=== PATIENT | male | born 1955 | race Caucasian/White ===

== ENCOUNTER 2017-05-16 11:23 | Observation (INO) | payer MEDICARE ==
[2017-05-16] VITALS (7 sets, daily range): BP systolic 140–172; BP diastolic 69–101; PULSE 82–90; RESP 20–40; O2SAT 97–100
[~2017-05-16] VITALS: Ht 172.7 cm; Wt 85.7 kg
[~2017-05-16 11:23] MED LIST: ASPI-973 PO; CALC0.257 PO; CALC500T53 PO; CLOP75TA28 PO; DOXE2.5C PO; GABA-504 PO; HYDR-4003 PO; LIP40 PO; LISI2.5T PO; METO-386 PO; MTC5T PO; OMEP40CA36 PO; TRAZ-118 PO
--- NOTE | 2017-05-16 11:31 | ED.REPORT ---
HPI-Dyspnea / Wheezing Date of Service May 16, 2017 ED Provider: Cosmo Hernandez MD A 58 year old male with a history of NSTEMI, stent, ESRD on peritoneal dialysis , GERD, secondary hyperparathyroidism and hypertension presents to the ED complaining of shortness of breath. This began suddenly 3.5 days ago when he was walking in the rain. He initially had a cough, but this has since resolved. He is now experiencing chest tightness, fever, nausea and vomiting. His chest tightness and shortness of breath are exacerbated by exertion but not by laying flat. He denies diaphoresis, chills, chest pain or lower extremity edema. The pt experienced similar symptoms in 07/2016 and required stent placement. He was taken off of Plavix in 01/2017. Nursing Notes Stated Complaint: SHORTNESS OF BREATH Chief Complaint: Respiratory Complaints Nursing Notes Reviewed: Yes (Updater not reconciled) Allergies: Coded Allergies: codeine (Verified Allergy, Severe, NAUSEA/VOMITING HIVES, 12/06/14) Scheduled Aspirin (Aspirin) 81 Mg Tablet 81 MG PO DAILY Atorvastatin (Lipitor) 40 Mg Tablet 40 MG PO DAILY Calcitriol (Rocaltrol) 0.25 Mcg Capsule 1 MCG PO DAILY Calcium Carbonate (Calcium Carbonate) 200 Mg Tab.chew 4,000 MG PO [facility] Clopidogrel (Clopidogrel) 75 Mg Tablet 75 MG PO DAILY Doxercalciferol (Hectorol) 2.5 Mcg Capsule 2.5 MCG PO DAILY Gabapentin (Gabapentin) 400 Mg Capsule 400 MG PO TID Lisinopril (Lisinopril) 2.5 Mg Tablet 2.5 MG PO DAILY Metoclopramide (Metoclopramide) 5 Mg Tablet 5 MG PO BID Metoprolol Succinate ER (Metoprolol Succinate ER) 25 Mg Tab.er.24h 25 MG PO BID Omeprazole (Omeprazole) 40 Mg Capsule.dr 40 MG PO BID Trazodone (Trazodone) 100 Mg Tablet 100 MG PO HS Scheduled PRN Hydrocodone-Acetaminophen 5-325 mg (Hydrocodone-Acetaminophen 5-325 mg) 1 Each Tablet 2 TABLET PO Q4 PRN PRN For Moderate Pain General Time Seen by MD: 11:30 Chief Complaint Shortness of breath Hx Obtained From: Patient Arrived By: Walk-in Sudden in Onset?: Yes Onset Occurred: 3 days ago Symptom Duration: Since onset Recent Healthcare: No recent hospitalization Similar Sx Previous: Yes Past Medical History Past Medical History Notes: Hygiene Coordinator: Dr. Torres Past Medical History NSTEMI s/p JOE in ostial LAD lesion chronic end-stage renal disease on peritoneal dialysis GERD Secondary hyperparathyroidism Hypertension #restless leg syndrome Past Surgical History Stent placement Smoking History Never Smoker Social History Other Social History: Good social support Ambulatory Status Independent Review of Systems Review of Systems Note: chest tightness denies lower extremity edema Constitutional: Reports: Fever, Denies: Chills Respiratory: Reports: Non-productive cough (resolved), Shortness of breath Cardiovascular: Denies: Chest pain Musculoskeletal: Denies: Back pain, Neck pain Skin: Denies Diaphoresis, Denies Rash Complete sys rev & neg: except as marked. GI: Reports: Nausea, Vomiting Physical Exam Initial Vital Signs Vital Signs (First) Date Time Temp Pulse Resp B/P Pulse Ox O2 Delivery O2 Flow Rate FiO2 05/16/17 11:27 37.3 89 40 170/101 100 Room Air 05/16/17 12:53 1 Initial VS: Reviewed, Vital signs abnormal General/Constitutional: Awake, Alert no edema or signs fluid overload peritoneal dialysis catheter in place Neck: Atraumatic, Supple, Full range of motion Respiratory / Chest: Atraumatic, No respiratory distress slightly tachypneic not visible dyspneic questionable diminished breath sounds on the right Cardiovascular: Heart rate NL, Regular rhythm, Heart sounds NL ENT: Atraumatic, Airway patent, Mucous membranes moist Abdomen: Atraumatic, Soft, Non-tender Back: Atraumatic, Full range of motion Lower Extremity / Pelvis / MS: Atraumatic, Full range of motion Skin: Color NL, No rash, Warm, Dry Neurologic: Oriented X3, Speech NL, No motor deficits, No sensory deficits Head / Eyes: Atraumatic, Normocephalic, PERRL, EOMI Upper Extremity / MS: Atraumatic, Full range of motion Psychiatric: Affect NL, Mood NL Interpretation & Diagnostics Lab Results Interpretation Result Diagram: 05/16/17 1213 05/16/17 1213 Test 05/16/17 12:13 05/16/17 12:14 White Blood Count 6.4th/mm3 (3.8-10.1) Red Blood Count 3.75mil/mm3 (4.40-5.80) Hemoglobin 11.3g/dL (13.8-17.2) Hematocrit 35.3% (41.0-50.0) Mean Corpuscular Volume 94.1fL (81-100) Mean Corpuscular Hemoglobin 30.1pg (27.0-35.0) Mean Corpuscular Hemoglobin Concent 32.0% (32.0-37.0) Red Cell Distribution Width 15.9% (12.3-15.4) Platelet Count 325bil/L (150-400) Neutrophils (%) (Auto) 62.9% (40-74) Lymphocytes (%) (Auto) 19.2% (14-46) Monocytes (%) (Auto) 15.2% (4-12) Eosinophils (%) (Auto) 1.9% (0-5) Basophils (%) (Auto) 0.2% (0-3) Sodium Level 137mEq/L (134-144) Potassium Level 4.7mEq/L (3.5-5.2) Chloride Level 97mEq/L (97-108) Carbon Dioxide Level 21mmol/L (18-29) Blood Urea Nitrogen 47mg/dL (8-27) Creatinine 12.34mg/dL (0.76-1.27) Estimat Glomerular Filtration Rate 4mL/min (>59) Glucose Level 107mg/dL (60-99) Lactic Acid Level 1.4mmol/L (0.4-2.0) Calcium Level 9.1mg/dL (8.5-10.1) Phosphorus Level 2.3mg/dL (2.5-4.9) Magnesium Level 1.7mg/dL (1.6-2.6) Total Bilirubin 0.3mg/dL (0.0-1.2) Aspartate Amino Transf (AST/SGOT) 22U/L (0-50) Alanine Aminotransferase (ALT/SGPT) 15U/L (0-44) Alkaline Phosphatase 78U/L (25-160) Troponin T 0.133ug/L (0.0-0.011) Total Protein 6.9g/dL (6.4-8.4) Albumin 3.4g/dL (3.4-5.0) Prothrombin Time 10.6sec (8.1-12.5) Prothromb Time International Ratio 0.99ratio Activated Partial Thromboplast Time 26.4sec (22.8-33.0) Lab Results Interpretation: CBC normal CMP chronic renal failure Troponin elevated, likely secondary chronic renal failure-patient's previous troponin during an Acute Syndrome were in order of magnitude grade ECG Interpretation ECG Interpretation: normal sinus rhythm with a rate of 83 right ventricular hypertrophy RBBB nonspecific T abnormalities seen on previous dated 08/22/2017 have resolved Time: 12:22 Interpreted by: ED physician X-Ray Chest Interpretation Chest Xray Interpretation: IMPRESSION: Development of a small to moderate right-sided pleural effusion, with presumed overlying atelectasis. Trace left-sided pleural effusion. Dictated by: Hector Alexander M.D. on 05/16/2017 at 12:12 Approved by: Hector Alexander M.D. on 05/16/2017 at 12:14 Interpretation / Wet Read by: Interpret - Radiologist Re-Eval/Medical Decision Med Decision/Clinical Course This is a 62-year-old male with a history of coronary disease and chronic renal failure on peritoneal dialysis presents with several days of increasing shortness of breath. Denies chest pain, he thinks maybe had a fever several days ago but none since and has no cough. There is no increasing dyspnea that is brought into the emergency department. He reports no weight change, no change in dialysis, no new medications. He has no additional complaints. He reports that when he last identified as having an acute cord syndrome and symptoms were shortness breath, but states this is different. Arrival he has a dyspnea and tachypnea at the restaurant rate in the 40s, but arrest settles down-but is not hypoxic or febrile. He is normotensive. He does not have a tachycardia. Slightly diminished lung sounds on the right, but no cough. He has no edema or JVD to indicate marked findings of heart failure, and no clinical findings of a DVT or evident on exam. Chest x-ray reveals a new, complex right pleural effusion slightly caused the patient's dyspnea. EKG is actually improved with resolution of abnormal T-wave seen previously, blood work is nondiagnostic he does not have a leukocytosis. His troponin elevation, but it fits with his chronic renal function. With his cardiac history on review of records she did have a left pleural effusion when he first was identified, and CHF is a likely possibility. However he had a full fairly recent echocardiogram without overt signs of worsening CHF, so limited echo is being planned for reevaluation. Additionally diagnostic thoracentesis is being attempted. The radiologist performing a thoracentesis is worried about this being potentially infectious given that slightly loculated appearance-however the patient does not clinically appear like someone as 1 would be expected with an empyema. He does not have a fever here, this borderline fever several days ago history is extremely vague, he does not have a white count. I doubt an empyema clinically. The patient's been consulted by the nephrologists, stating admitted for continued management given the multiple comorbidities. Source of Hx: Old records Re-Evaluation/Progress #1: Time of Eval: 13:04 Patient Status: Condition improved Re-Evaluation/Progress Note: Pt rechecked, who is resting comfortably. Updated the pt on radiology and lab results. Re-Evaluation/Progress #2: Time of Eval: 14:08 Patient Status: Condition improved Re-Evaluation/Progress Note: Pt rechecked, who is comfortable. The diagnosis and plan for admission are discussed. The pt understands and agrees with the plan. All questions are addressed at this time. Consultation #1: Referral / Consult Name: Nishant Abel DO Consulted With: Nephrology Call Returned at: 14:20 Organizational Development Specialist: Will see patient, Agrees with eval Note: Spoke with Dr. Abel, it corporate recruiter, regarding pt's case. Dr. Abel will see the pt in the ED. Consultation #2: Referral / Consult Name: Saritha Walters DO Consulted With: Hospitalist Call Returned at: 14:43 Organizational Development Specialist: Agrees with eval, Agrees with plan, Accepts admit Note: Spoke with Dr. Walters, hospitalist, regarding pt's case. Dr. Walters agrees with the evaluation and agrees to admit the pt. Consultation #3: Referral / Consult Name: Nishant Abel DO Consulted With: Nephrology Call Returned at: 14:56 Organizational Development Specialist: Agrees with eval, Agrees with plan Note: Spoke with Dr. Abel, who has evaluated the pt. He agrees with the plan for admission and agrees to consult. Counseled Regarding: Diagnosis, Lab results, Need for admission Discharge & Departure Impression: Primary Impression: Pleural effusion Additional Impressions: Chronic renal failure Chronic kidney disease stage: unspecified stage Qualified Code: N18.9 - Chronic kidney disease, unspecified Dyspnea Disposition: ADMITTED TO HOSPITAL Discharge Condition All VS Reviewed: Yes Condition: Stable Referrals: Yamilex Ferrara MD (PCP) Scribe Attestation Portions of this note were transcribed by Adilson Baltazar. I, Dr. Hernandez personally performed the history, physical exam and medical decision-making; I reviewed and confirmed the accuracy of the information in the transcribed note. copies to: Yamilex Ferrara MD, Matthew F MD May 16, 2017 11:31 ADILSON BALTAZAR May 16, 2017 11:39
--- NOTE | 2017-05-16 12:15 | DRSVH ---
PROCEDURE: X-RAY CHEST ONE VIEW, PORTABLE ([id number]) INDICATIONS: SHORTNESS OF BREATH TECHNIQUE: One view of the chest was acquired. COMPARISON: [facility], CR, XR CHEST 2VW, 07/07/2016, 10:46. [facility], CR, XR CHEST 2VW, 07/23/2016, 16:06. [facility], CR, XR CHEST 2VW, 08/20/2016, 12:16. FINDINGS: Surgical changes and devices: Postoperative clips are seen involving the central lower neck. Lungs and pleura: There is a small moderately sized right-sided pleural effusion seen, which has incr eased in size compared to the prior. Likely overlying atelectasis can be seen at the right lung base . A trace left-sided pleural effusion is seen, which is decreased in size compared to the prior. No pneumothorax is seen. Mediastinum: Mediastinal contours appear normal. Heart size is normal. Bones and chest wall: Age-appropriate bony degenerative changes are seen. Mild dextroconvex scoliot ic curvature is seen. No suspicious bony lesions. Overlying soft tissues appear unremarkable. IMPRESSION: Development of a small to moderate right-sided pleural effusion, with presumed overlying atelectasis. Trace left-sided pleural effusion. Dictated by: Hector Alexander M.D. on 05/16/2017 at 12:12 Approved by: Hector Alexander M.D. on 05/16/2017 at 12:14
[2017-05-16 12:29] LABS: BASOPHILS % (AUTO) 0.2 % (0-3); EOSINOPHILS % (AUTO) 1.9 % (0-5); MONOCYTES % (AUTO) 15.2 % (4-12); Mean Corpuscular Hemoglobin 30.1 pg (27.0-35.0); Mean Corpuscular Volume 94.1 fL (81-100); NEUTROPHILS % (AUTO) 62.9 % (40-74); Platelet Count 325 bil/L (150-400)
[2017-05-16 12:31] LABS: INR 0.99 ratio
[2017-05-16 12:50] LABS: Magnesium 1.7 mg/dL (1.6-2.6); Phosphorus 2.3 mg/dL (2.5-4.9)
[2017-05-16 13:07] LABS: TROPONIN T 0.133 ug/L (0.0-0.011)
[2017-05-16] MEDS ORDERED: Sodium-Potassium Phosphorus Packet PO ONE (15:30)
--- NOTE | 2017-05-16 15:30 | ABG ---
DateTimeAnalyzed 15:23:00 -_ pH ____7.273 - Drawn By as - Date/Time Notified____ 15:30:00 -_ Notified Whom dr nilo\\ - Aba test N/A -
[2017-05-16] MEDS ORDERED: LISI-571 PO (15:54)
[2017-05-16] MEDS ORDERED: METO-394 PO (15:55)
[2017-05-16] MEDS ORDERED: TRAZ-118 PO (15:55)
[2017-05-16] MEDS ORDERED: GABA-502 PO (15:57)
[2017-05-16] MEDS ORDERED: NITR0.4T38 SL (15:57)
[2017-05-16] MEDS ORDERED: CHOL200047 PO (15:58)
--- NOTE | 2017-05-16 16:03 | DRSVH ---
PROCEDURE: US GUIDED THORACENTESIS BY REFERRING PHYSICIAN ([id number]) INDICATIONS: SOB, R effusion TECHNIQUE: The indications, alternatives, benefits, risks, and complications of the procedure were explained to the patient. Written informed consent was obtained and placed in the chart. The chest was examined sonographically, and an appropriate site was chosen for thoracentesis. The skin was prepared and tania ped in the usual sterile fashion, and 1% lidocaine was infiltrated from the skin down through the ple ural surface. A 19-gauge catheter-covered needle was then introduced into the pleural space, the cat heter was advanced and the needle was withdrawn, and thereafter pleural fluid was aspirated. The cat heter was then removed and a dressing was applied. The attending physician was present, and personal ly performed the procedure. COMPARISON: [facility], CR, XR CHEST 1VW, 05/16/2017, 15:27. FINDINGS: Access site: Right hemithorax. Needle: One-Step centesis catheter with introducer needle. Fluid volume and description: 120 cc of slightly bloody tinged pleural fluid. Fluid sent for diagnostic testing: Fluid sent for cytology, multiple chemistry panels and therapeutic drainage. Medications: 1% lidocaine for local anaesthesia. Complications: None; post-procedural chest radiograph is pending to assess for pneumothorax. IMPRESSION: Successful ultrasound-guided thoracentesis. Dictated by: Austin RENTERIA Interpreted: Ida Ventura MD on 05/16/2017 at 16:02 Transcribed by: ITALO on 05/16/2017 at 16:03 Approved by: Ida Ventura M.D. on 05/16/2017 at 17:12
--- NOTE | 2017-05-16 16:06 | CONS ---
[address] [address] CONSULTATION REPORT PATIENT: YUE RAMIRES : 1955 MR#: [id number] ADMIT: 05/16/2017 JOB ID: [id number] RENAL CONSULTATION: DATE OF SERVICE: 05/16/2017 HISTORY: This patient is a 62-year-old white male who was admitted through [facility] for shortness of breath. He has a history of end-stage renal disease and is currently on continuous nighttime peritoneal dialysis. Renal consultation is being sought for further evaluation and management of his chronic kidney disease and peritoneal dialysis. The patient states that he has had progressive shortness of breath for about the last 5-7 days. He has had progressive dyspnea with minimal exertion and some slight resting dyspnea in the last 1-2 days. He denies any orthopnea, paroxysmal nocturnal dyspnea, lower extremity edema, or chest pain. He has been doing his nighttime peritoneal dialysis treatments without variation. In the emergency room, a chest x-ray revealed a semi-loculated pleural effusion of the left lower lobe of his lung. He is currently being seen by Interventional Radiology and a thoracentesis is planned. He denies any history of any recent abdominal pain, fever, chills, problems with draining from his peritoneal dialysis fluid, blood in the fluid or cloudy fluid, or diminished return. He states that he is sleeping okay. He denies any headache, visual changes, cough, wheezing, nausea, vomiting, anorexia, constipation, diarrhea, change in weight, or skin rashes. The etiology of his end-stage renal disease is secondary to longstanding hypertension. He has been on peritoneal dialysis since 2014 and has had two different peritoneal dialysis catheters placed. He states that he has had two episodes of peritonitis a number of years ago; however has had no problems with this since that time. PAST MEDICAL HISTORY: Significant for hypertension with hypertensive heart disease and hypertensive nephrosclerosis, end-stage renal disease as detailed above, coronary artery disease with an acute myocardial infarction. He underwent a stent placement in July 2016. He also has a history of hyperlipidemia and a parathyroidectomy. Otherwise he denies a history of any prior stroke, seizure, asthma, emphysema, tuberculosis, congestive heart failure, thyroid illness, or malignancy. PAST SURGICAL HISTORY: Significant for a partial parathyroidectomy, coronary stent placement, and two dialysis catheter placements as detailed above. ALLERGIES: To CODEINE and states he gets a rash with this. SOCIAL HISTORY: He denies the history of alcohol, tobacco or illicit drug use. He does states that he consumes marijuana occasionally. FAMILY HISTORY: Remarkable for some type of renal problem in his father; however his father was not on dialysis. He also states that his sister was born with one kidney. There is also family history of diabetes and hypertension. REVIEW OF SYSTEMS: Is detailed above. MEDICATIONS: At time of admission include aspirin, atorvastatin, calcitriol, calcium carbonate, clopidogrel, Hectorol, gabapentin, lisinopril, metoclopramide, metoprolol, omeprazole, and trazodone. PHYSICAL EXAMINATION: Revealed a well-developed, somewhat sallow complected, 62-year-old white male who was alert and oriented x3, in no distress at time of my evaluation. His blood pressure is 140/70 with a pulse rate of 82. HEENT examination is remarkable for mildly pale sclerae and slight scleral icterus. Cornea, conjunctivae, pupils, and extraocular muscles were all within normal limits. Otherwise his HEENT exam was remarkable for rhinophyma and moist mucous membranes. Neck is supple without adenopathy, thyromegaly or jugular venous distention. Lungs were clear on the left side without any abnormal breath sounds. On the right half of the chest, his breath sounds were diminished about half way down. There were no rales or rhonchi noted. Heart is regular and rhythmical with a soft systolic murmur. Abdomen is soft, without any tenderness, rebound, guarding, masses or hepatosplenomegaly. The area over his tunnel peritoneal dialysis catheter was not tender to palpation. Extremities do not show any evidence of any clubbing, cyanosis, or edema. Skin turgor was good and there was no evidence of any rashes. LABORATORY EXAMINATION: His white count is 6.4, hemoglobin 11.3, hematocrit 35.3, red cell indices, platelet count and differential were normal. Sodium is 137, potassium 4.7, chloride 97, bicarbonate 21, BUN and creatinine were 47 and 12.34. His glucose is 107. His phosphorus was 2.3. Liver function studies were normal. PT and PTT were within normal limits. IMAGING: His chest x-ray revealed a loculated effusion in the right lower lung field. IMPRESSION: 1. End-stage renal disease, dialysis dependent. 2. Hypertension with hypertensive heart disease and hypertensive nephrosclerosis. 3. Hypophosphatemia. RECOMMENDATION: 1. I will go ahead and write for his nighttime cycler orders to run four cycles for 10-1/2 hours of 1.5% Dianeal. 2. I agree with the plans for thoracentesis and send the fluid for analysis. 3. I would hold his phosphate binders for now as his phosphorus level is low and I will go ahead and order a dose of Neutra-Phos for him. Once again, I would like to thank you for allowing me to participate in the care of this most pleasant and interesting patient. I will be following him closely with you.
[2017-05-16] MEDS ORDERED: Ondansetron 2 mg/mL 2 mL Inj IVPUSH PRN (16:10)
--- NOTE | 2017-05-16 16:14 | NUR ---
Admit nurse note Admission assessment completed in the ER, Echocardiogram in progress. Pt. denies complaints. He states he came in for sob and feels much better since "they took that fluid off of me." No sob noted while lying flat for echo. Pt. states he has no hx sob or lung troubles until recently. He has been on peritoneal dialysis since 2004 and last did at home dialysis last night. He has neuropathy and is due for his gabapentin but states he is not uncomfortable yet. Allergies verified and allergy sticker placed on nameband. Pt. declines advance directives information. Report given to Radha Leone.
--- NOTE | 2017-05-16 16:28 | DRSVH ---
PROCEDURE: X-RAY CHEST ONE VIEW ([id number]) INDICATIONS: post thoracentesis (wait until procdure complete) TECHNIQUE: One view of the chest was acquired. COMPARISON: [facility], CR, CHEST 1VW, 05/06/2008, 9:07. [facility], CR, XR CHEST 2VW, 07/07/2016, 10:46. [facility], CR, XR CHEST 2VW, 08/20/2016, 12:16. [facility], CR, XR CHEST 1VW (PORTABLE), 05/16/2017, 11:59. FINDINGS: Surgical changes and devices: Surgical clips right lower neck region.. Lungs and pleura: There is an appreciable improvement in the subpulmonic and lateral right pleural ef fusion, with no pneumothorax after thoracentesis on the right. A small 1.2 cm masslike structure abu ts the diaphragm of the left hemithorax, exactly at the middle third, and on the right there is pleur al thickening and lung parenchymal consolidation 2 the degree of back recess than for presence of mas s would be very limited. Mediastinum: Mediastinal contours appear normal. Heart size is normal. Bones and chest wall: No suspicious bony lesions. Overlying soft tissues appear unremarkable. IMPRESSION: No pneumothorax after right-sided thoracentesis, significant residual pleural thickening and lung base alveolar opacification is present on the right potentially obscuring mass lesion in fabienne t area. Note is made of a left lung base masslike structure abutting the middle third of the left hemidiaphra gm, and followup CT scanning is obtained contrast enhanced technique is recommended and focused atten tion to these lower lung is recommended. Dictated by: Jose Luis Bates M.D. on 05/16/2017 at 16:24 Approved by: Jose Luis Bates M.D. on 05/16/2017 at 16:26
[2017-05-16 16:42] LABS: TOTAL PROTEIN,PLEURAL FLUID 3.1 g/dL
--- NOTE | 2017-05-16 17:06 | NUR ---
Admit: Patient arrived to [facility] via stretcher @ approx 1645. Ambulated to stand up scale then to bed. Steady gait. Alert & oriented x 3. Telemetry box #42 placed, SR 89 per cafeteria monitor. Bed rails up x 2, bed in low and locked position, call light within reach. Denies hx of falls. Denies pain, nausea, states shortness of breath "much better" compared to when he first presented to ED. Room air O2 saturation 97%. Oriented to room and call light system. Band-aid on right upper back from thoracentesis C/D/I. Notified by wafer slicer that she will place on PD tonight. Addendum: 05/16/17 at 1816 by BLANE OQUENDO RN Temp 37.6, BP 172/99. aware.
[2017-05-16 17:09] LABS: BFWBC 475 /mm3; MONOCYTES,BODY FLUID 4 %; OTHER CELLS,BODY FLUID 0
[2017-05-16] MEDS ORDERED: Alum-Mag Hydrox-Simeth 30 mL Suspension PO PRN (17:15)
[2017-05-16] MEDS ORDERED: Polyethylene Glycol (PEG) 17 Gm Powder PO PRN (17:15)
--- NOTE | 2017-05-16 17:42 | DRSVH ---
[facility] [address] [place] [address] Echocardiogram Report Name: YUE RAMIRES DStudy Date: 05/16/2017 Height: 68 in Hospital Exam Location: [facility] Weight: 196 lb Gender: Male BSA: 2.0 m2 : 1955 Age: 62 yrs BP: 140/69 mmHg Reason For Study: Shortness of breath Ordering Physician: LORETO [facility] Performed By: Mayra Pizarro Referring Physician: Baldemar Mcclelland Interpretation Summary 1) Normal left ventricular thickness, size, wall motion, and systolic function (EF 55-60%). 2) Normal right ventricular size and function. 3) No significant valvular abnormalities. 4) Compared to the Echo done 08/21/2016, LVEF has improved from 45-50% to 55- 60% on today's study. Procedure: Focused echocardiogram to assess regional wall motion, ejection fraction, and pleural effusion. Comparison is made with the echocardiogram of 08/21/2016. The patient was in normal sinus rhythm during the exam. Left Ventricle: The left ventricle is normal in size. There is normal left ventricular wall thickness. The ejection fraction is estimated to be 55-60%. Left ventricular systolic function is normal without focal wall motion abnormalities. Right Ventricle: The right ventricle is normal in size and function. Mitral Valve: The mitral valve is normal in structure and function. There is trace mitral regurgitation. Aortic Valve: The aortic valve is trileaflet. The aortic valve opens well. No aortic regurgitation is present. Tricuspid Valve: The tricuspid valve is normal in structure and function. There is a trace or physiologic amount of tricuspid regurgitation. Pulmonary artery pressures cannot be estimated because of the lack of a measurable TR jet velocity. Pulmonic Valve: The pulmonic valve is normal in structure and function. There is a trace or physiologic amount of pulmonic regurgitation. Great Vessels: The IVC is of normal diameter and collapses greater than 50% with a sniff. This suggests a low right atrial pressure of 3 mm Hg. Pericardium/ Pleura There is an anterior echo-free space consistent with a fat pad. There is no pericardial effusion. There is no pleural effusion. MMode/2D Measurements & Calculations LVIDd: 4.9 cm LVIDs: 3.2 cm LVAd ap4: 32.7 cm FS: 34.5 % LVAs ap4: 21.2 cm IVSd: 1.0 cm LVLs ap4: 8.3 cm LVPWd: 0.90 cm LVAd ap2: 20.8 cm EF(MOD-bp): 54.9 % LVLd ap2: 7.4 cm EDV(MOD-sp2): 46.5 ml EDV(sp2-el): 49.4 ml LVAs ap2: 12.1 cm LVLs ap2: 6.6 cm ESV(MOD-sp2): 19.3 ml ESV(sp2-el): 19.0 ml EF(MOD-sp2): 58.5 % LV lopez. diameter/BSA (cm/m^2): 2.4 LV sys. diameter/BSA (cm/m^2): 1.6 Reading Physician:05:42 PM
[2017-05-16] MEDS: Pantoprazole 40 mg ER24 Tablet PO SCH (18:03)
[2017-05-16] MEDS: Heparin 5,000 Unit/mL Inj SUBQ SCH (18:05)
--- NOTE | 2017-05-16 18:14 | NUR ---
Off Unit: Patient transported to CT via wheelchair accompanied by transporter @ approx 1810. technical support consultant notified. No apparent distress noted at time of transport.
--- NOTE | 2017-05-16 18:23 | PCM.HPMED ---
Subjective Date of Service May 16, 2017 Primary Provider: Admitting Physician: Saritha Walters DO Primary Care Physician: Fortino Torres MD Attending Physician: Saritha Walters DO Admit Status: From the Emergency Department Chief Complaint: Dyspnea History of Present Illness: This is a 62-year-old male with past medical history of CAD status post stent last Carlos time, known left left pleural effusion of unknown etiology, and NSTEMI last , secondary hyperparathyroidism, ESRD secondary to hypertension currently on peroneal dialysis is presenting to the ER due to dyspnea that has been ongoing for 3-5 days and has been getting worse. At baseline patient can walk a quarter mile but now he is short of breath even walking down the chan. He thought that he had similar symptoms last July prior to his NStemi. When he came to the hospital in the ER RR 40s, his EKG showed right bundle branch block and right ventricular hypertrophy, X chest x- rays showed a trace left-sided effusion and atelectasis and but also small moderate sized right-sided effusions. blood cultures were ordered. patient underwent thoracentesis by interventional radiology which provided him in a lot of relief. ABG showed concern for acidosis at 7.27. Patient states that he is not a smoker and has never been, though he does consume marijuana daily in the evenings. His helps him at the [employer]. He does not have any other complaints that other than dry mouth, he has numbness and tingling in the peripherals, a carpal tunnel in the right hand increased generalized weakness in the recent past and he is hard of hearing (not new ). States that he has been coughing prior to coming to ER but it has resolved. He denies wheezing, his chest tightness that was reported in the ER is has also resolved. He was noted to be afebrile in the ER. He took his morning medications this morning and he was able to verify his medications upon arrival to floor. In his room, His vitals were blood pressure 172/99 temperature 99.6 pulse is 89 and he is saturating on room air fully. He states that his blood pressure is usually well under control at home with systolic 120s , diastolic 60s. An echo performed in 2015 shows 45-50% EF distal anterior hypokinesis Repeat echo was performed in the ER and showed improved left ventricular function ("Compared to the Echo done 08/21/2016, LVEF has improved from 45-50% to 55-60% on today's study.") Troponin was elevated upon admission at 0.135. Her BNP was added on today had labs showed 2043 Review of Systems: Complete review of systems performed, pertinent positives and negatives per history of present illness, all other systems reviewed and are negative. Allergies Coded Allergies: codeine (Verified Allergy, Severe, Rash,Itching,, 05/16/17) Home Medications Patient's medications include aspirin, Plavix, atorvastatin, gabapentin, lisinopril, metoprolol, omeprazole, trazodone and Tums PMH End-stage renal disease secondary to hypertension, on peritoneal dialysis, CAD status post stent last July, left pleural effusion, and Stamey last July , GERD, secondary hyperparathyroidism, insomnia, peripheral neuropathy Surgical History Stent placement last July, parathyroidectomy Family History Mother had dementia, dad had hypertension and estimated from aneurysm Social History Occupation: retired [employer] truck driver Hx Alcohol Use: Yes ("years ago") Hx Substance Use: Yes (marijuana daily ) Smoking Status: Never Smoker Living Arrangement: with Family Exam Vital Signs Vital Sign - Last Date Time Temp Pulse Resp B/P Pulse Ox O2 Delivery O2 Flow Rate FiO2 05/16/17 17:10 86 05/16/17 16:54 37.6 20 172/99 97 Room Air 05/16/17 16:39 1 Exam General: No acute distress, , appropriately interactive HEENT: Normocephalic, atraumatic. External ears without defect. Pupils equal, round, and reactive to light and accommodation. Anicteric sclerae, moist conjunctivae, and no lid lag. Oropharynx free of erythema and cobble stoning with moist mucosa.Appears to have a nose tip that is cyanotic but he states that that is not new. Neck: Supple with full range of motion. No jugular venous distension. No bruits. No lymphadenopathy or thyromegaly. Cardiovascular: Regular rate and rhythm with no murmurs, rubs, or gallops appreciated Pulmonary: No, wheezes, or rhonchi. Normal respiratory effort with no use of accessory muscles. Fine Crackles in the lower lobes Abdomen: Bowel tones present. Soft, mildly tender diffusely, nondistended. No hepatosplenomegaly or masses appreciated. Extremities: No clubbing, cyanosis, edema, or lymphadenopathy appreciated. Skin: Normal temperature, turgor, and texture; no rash, ulcers, or subcutaneous nodules appreciated. Neurological: Cranial nerves grossly intact. Normal muscle strength, tone, and bulk. Reflexes, coordination, and sensory function within normal limits. No known gait impairment. Psychiatric: Normal mood and affect. Alert and oriented to person, place, and time. Lab and Diagnostics Result Diagram: 05/16/17 1213 05/16/17 1213 X-Rays, CTs and MRIs PROCEDURE: X-RAY CHEST ONE VIEW, PORTABLE ([id number]) INDICATIONS: SHORTNESS OF BREATH TECHNIQUE: One view of the chest was acquired. COMPARISON: [facility], CR, XR CHEST 2VW, 07/07/2016, 10:46. [facility], CR, XR CHEST 2VW, 07/23/2016, 16:06. [facility], CR, XR CHEST 2VW, 08/20/2016, 12:16. FINDINGS: Surgical changes and devices: Postoperative clips are seen involving the central lower neck. Lungs and pleura: There is a small moderately sized right-sided pleural effusion seen, which has increased in size compared to the prior. Likely overlying atelectasis can be seen at the right lung base. A trace left-sided pleural effusion is seen, which is decreased in size compared to the prior. No pneumothorax is seen. Mediastinum: Mediastinal contours appear normal. Heart size is normal. Bones and chest wall: Age-appropriate bony degenerative changes are seen. Mild dextroconvex scoliotic curvature is seen. No suspicious bony lesions. Overlying soft tissues appear unremarkable. IMPRESSION: Development of a small to moderate right-sided pleural effusion, with presumed overlying atelectasis. Trace left-sided pleural effusion. Dictated by: Hector Alexander M.D. on 05/16/2017 at 12:12 Approved by: Hector Alexander M.D. on 05/16/2017 at 12:14 Assessment & Plan Assessment #1 acute congestive heart failure due to volume overload HFPEF, present on admission acute dyspnea secondary to increased pleural effusions Patient was already tapped in the ER, follow the cultures from pleural fluid We will rule out other cardiac etiologies with troponins Echocardiogram already performed in the ER showed improved left ventricular function, discussed case with Dr. Mota, recommends adding CK and CK-MB to troponins. No need for stress test in the a.m. based on current reedings and presentation (especially after the fact that he is asymptomatic following the thoracentesis). The patient in his time and recommendations Morphine 1 mg every 4 hours when necessary for dyspnea Chest CT is ordered with contrast after informing nephrology to look for malignancy, rule out exudative effusions. Assessment #2 end-stage renal dialysis center toenail dialysis chronic -- Dr. Abel is contacted from the ER he plans to do a dialysis tonight -- Ultimately interesting the fluids, shift . His symptoms of volume overload and congestive heart failure Assessment #3 CAD status post stents chronic presumed stable Continue home medications atorvastatin, is aspirin, Plavix, lisinopril, metoprolol Assessment #4 hypertension chronic stable Continue home medications Assessment #5 GERD chronic stable Continue medications Assessment #6 insomnia chronic presumed stable Continue medications Assessment #7 secondary hyperparathyroidism, chronic presumed stable -- Continue vitamin supplementation CODE STATUS: Full code ADM: PCP: No PCP DVT prophylaxis with heparin subcutaneous High risk medication: Morphine IV Patient is admitted under observation status with expected length of stay less than 2 midnights due to severity of presenting symptoms, risk of adverse event, and complexity of treatment plan. Time spent 45 minutes Saritha Walters DO May 16, 2017 18:23
[2017-05-16 18:50] LABS: Magnesium 1.7 mg/dL (1.6-2.6)
[2017-05-16 18:51] LABS: TROPONIN T 0.135 ug/L (0.0-0.011)
--- NOTE | 2017-05-16 19:01 | DRSVH ---
PROCEDURE: CT CHEST WITH CONTRAST ([id number]) INDICATIONS: suspicion for mass TECHNIQUE: After the administration of intravenous contrast, 5 mm thick sections acquired from the pulmonary api vitaliy to the posterior costophrenic angles. 7 mm thick coronal and sagittal MIP reformats were acquire d. For radiation dose reduction, the following was used: automated exposure control, adjustment of mA and/or kV according to patient size. COMPARISON: [facility], CR, XR CHEST 1VW, 05/16/2017, 15:27. FINDINGS: Image quality: Excellent. Lungs and pleura: There are calcifications against the hemidiaphragm on the left. Just superior to t his is a soft tissue lesion somewhat spiculated in appearance and its margins which is likely inflam mation of the pleural plaque. Calcified plaque is seen posteriorly in the left chest as well as anter olaterally and more superiorly in the left chest. In the right chest isn't pleural effusion with calcified pleural plaquing there is some enhancement o f the pleural suggesting this is exudative. Several areas of the pleura suggests focal thickening but the only suggestion of nodule would be a series 2 image 38 although the visceral pleural surface. In flammation and rounded atelectasis could cause this appearance as well. Mediastinum: Heart size is normal. No pericardial effusion. No mediastinal or hilar adenopathy by size criteria. Thoracic aorta and central pulmonary arteries are normal in size. Esophagus is nirali l in caliber. There is a small hiatal hernia Bones and chest wall: No suspicious bony lesions. No vertebral body compression fractures. No axil mary or supraclavicular adenopathy by size criteria. Abdomen: Visualized upper abdominal solid organs appear normal. Upper abdominal bowel loops are nor mal in caliber. Kidneys bilaterally show thin renal cortex, bilateral cysts. Entire kidneys are not seen. The appearance would suggest atrophy is present. IMPRESSION: 1. Pleural fluid in the right chest shows enhancement of the pleura consistent with exuda tive fluid. There is suggestion of some nodularity but no definite nodularity in this patient with ca lcified pleural plaques. 2. Lesion against the left hemidiaphragm is a soft tissue plaque overriding some calcified pleural pl aques. No associated effusion. No CT to compare. Differential As therefore malignancy from lung primary or possible mesothelioma versus benign soft tissue plaquing . 3. No malignant changes are seen in the mediastinum or upper abdomen or bones. 4. Probable bilateral renal atrophy. Renal function needs to be evaluated following the CT. Dictated by: Armen Winslow M.D. on 05/16/2017 at 18:47 Approved by: Armen Winslow M.D. on 05/16/2017 at 18:59
--- NOTE | 2017-05-16 19:44 | NUR ---
Case Management: LUIZ explained to patient at 1920 (pt very ROSEBUD), all questions answered. Signed copy placed in chart, copy given to patient. Pt refused the Medicare Part D Self-Administered Drug Info sheet. Yu Collins RN
[2017-05-16] MEDS ORDERED: Non-Formulary Medication (Metoprolol Succinate ER 100 MG) PO SCH (20:30)
[2017-05-16 20:40] LABS: APPEARANCE,URINE CLEAR (CLEAR,HAZY); COLOR,URINE STRAW (YELLOW); OCCULT BLOOD,URINE MODERATE (NEGATIVE); PH,URINE 6.5 (5.0-8.0); UROBILINOGEN,URINE NORMAL (NORMAL)
[2017-05-16 22:09] LABS: Creatine Kinase 208 U/L (21-232)
[2017-05-16 22:09] LABS: Creatine Kinase 191 U/L (21-232)
[2017-05-17] VITALS (7 sets, daily range): BP systolic 121–169; BP diastolic 67–97; PULSE 67–95; RESP 19–20; O2SAT 95–98
[2017-05-17 00:27] LABS: Creatine Kinase 212 U/L (21-232)
[2017-05-17] MEDS: Heparin 5,000 Unit/mL Inj SUBQ SCH ×2 (01:29→08:24)
[2017-05-17] MEDS: Pantoprazole 40 mg ER24 Tablet PO SCH (08:24)
[2017-05-17] MEDS ORDERED: MeTOProlol XL 50 mg ER24 Tablet PO SCH (08:30)
[2017-05-17 08:33] LABS: Creatine Kinase 201 U/L (21-232)
--- NOTE | 2017-05-17 10:02 | PCM.PNNEPH ---
Subjective Date of Service May 17, 2017 Subjective Patient states he is breathing better today compared to yesterday. He denies any cough, wheezing, chest pain, or shortness of breath. There is no nausea, vomiting, or lower extremity edema. His appetite is good. Exam Vital Signs Vital Sign - Last Date Time Temp Pulse Resp B/P Pulse Ox O2 Delivery O2 Flow Rate FiO2 05/17/17 08:28 36.5 79 19 169/97 96 Room Air 05/16/17 16:39 1 Intake and Output 05/16/17 05/16/17 05/17/17 Cumulative From/Thru 15:00 23:00 07:00 05/16/17 11:27 - 05/16/17 18:13 Output Total 380.00 ml 380.00 ml Balance -380.00 ml -380.00 ml Ultrafiltrate 380.00 ml 380.00 ml Exam HEENT examination is remarkable for a sallow complexion along with some slightly icteric and pale sclera. Mucous membranes are moist. Neck is supple without adenopathy, thyromegaly, or jugular venous distention. Lungs are clear to auscultation. Abdomen is soft without any tenderness rebound guarding masses or hepatosplenomegaly. Extremities Show No Evidence of Any Clubbing, Cyanosis, or Edema However [id number] Nails Are Noted. Skin Turgor Is Good and There Is No Evidence of Any Rashes. Lab and Diagnostics Result Diagram: 05/16/17 1213 05/16/17 1213 X-Rays, CTs and MRIs PROCEDURE: X-RAY CHEST ONE VIEW, PORTABLE ([id number]) INDICATIONS: SHORTNESS OF BREATH TECHNIQUE: One view of the chest was acquired. COMPARISON: [facility], CR, XR CHEST 2VW, 07/07/2016, 10:46. [facility], CR, XR CHEST 2VW, 07/23/2016, 16:06. [facility], CR, XR CHEST 2VW, 08/20/2016, 12:16. FINDINGS: Surgical changes and devices: Postoperative clips are seen involving the central lower neck. Lungs and pleura: There is a small moderately sized right-sided pleural effusion seen, which has increased in size compared to the prior. Likely overlying atelectasis can be seen at the right lung base. A trace left-sided pleural effusion is seen, which is decreased in size compared to the prior. No pneumothorax is seen. Mediastinum: Mediastinal contours appear normal. Heart size is normal. Bones and chest wall: Age-appropriate bony degenerative changes are seen. Mild dextroconvex scoliotic curvature is seen. No suspicious bony lesions. Overlying soft tissues appear unremarkable. IMPRESSION: Development of a small to moderate right-sided pleural effusion, with presumed overlying atelectasis. Trace left-sided pleural effusion. Dictated by: Hector Alexander M.D. on 05/16/2017 at 12:12 Approved by: Hector Alexander M.D. on 05/16/2017 at 12:14 Plan Impression Impression #1 end-stage renal disease dialysis dependent #2 hypertension with hypertensive heart disease and hypertensive nephrosclerosis #3 nutrition with low lymphocytes and eosinophils predominant. Recommendations #1 on his discharge up to the primary team and also further follow-up on his pleural effusion. From my point of view he can be discharged whenever the primary team feels that is appropriate. Nishant Abel DO May 17, 2017 10:02
[2017-05-17 14:02] LABS: Creatine Kinase 223 U/L (21-232)
--- NOTE | 2017-05-17 14:52 | NUR ---
Social Work: Initial Assessment / Multidisciplinary Rounds Data: See initial assessment. Patient is a 62 year old male who was admitted on 05/16/17 for shortness of breath and pleural effusion per H&P. Patient's insurance is Medicare and his PCP is Fortino Torres MD. EMR reviewed. SW met with patient to discuss discharge planning. SW role explained. Patient states that he resides with his in a home located in [place]. Patient considers his and son to be his main sources of support. Patient denies having a DPOA but confirms that AD have been completed on his behalf. Patient confirms that he is I at baseline and is able to perform all ADLs and care needs. Patient confirms that he drives via [place]. Patient denies having a hx of home health services or SNF. Patient denies having middle or intermediate school principal care insurance or VA benefits. Upon discharge, patient states that his will assist with transporting him home. SW provided patient with a discharge planning checklist booklet and encouraged him to call with any questions or concerns. Phone number provided. Patient was discussed in morning rounds. No concerns were noted by MD or staff. SW will continue to follow for needs. Assessment: Patient will likely return home upon discharge. Plan: Patient will likely discharge home once medically stable for discharge. Transportation will be provided by spouse. SW will continue to follow for potential needs. JAREN Potts Addendum: 05/17/17 at 1505 by GIULIANA VELEZ Amended: Links added.
--- NOTE | 2017-05-17 16:25 | PCM.DIMED ---
Discharge Instructions Date of Service May 17, 2017 Dates of Hospitalization May 16, 2017 at 14:51 Discharge Diagnosis Discharge Diagnosis Pleural Effusions s/p thoracentesis, Elevated troponins, HTN, CAD Diet Discharge Diet: Heart Healthy, Renal Diet Activity Discharge Activity: No restrictions Call your provider Call your provider for: Fever or Chills, Shortness of breath, Bleeding, Chest pain, Vomitting, Excessive diarrhea, Weakness (unilateral), Other Patient Instructions Follow-up plan Please follow up with your mold capper in one week. Please follow upwith Dr. Escal[facility] clinic in one week for follow up on your lab results from [facility] and possible diagnostic thoracentesis.. Saritha Walters DO May 17, 2017 16:25
--- NOTE | 2017-05-17 16:30 | NUR ---
Social Work: Discharge / Brief Note Patient has been deemed medically stable for discharge today per MD. Patient's is at bedside and will assist with transportation home. Patient has no discharge needs at this time. JAREN Potts
--- NOTE | 2017-05-17 16:40 | PCM.DC.MED ---
Discharge Summary Date of Service May 17, 2017 Dates of Hospitalization Date of Hospital Admission May 16, 2017 at 14:51 Date of Discharge: May 17, 2017 Providers: Admitting Physician: Saritha Walters DO Primary Care Physician: Fortino Torres MD Attending Physician: Saritha Walters DO Diagnosis at Time of Discharge Diagnosis at Time of Discharge Pleural Effusions s/p thoracentesis, Elevated troponins, HTN, CAD Consultations IR, Nephrology Procedures XRay, CTs & MRIs PROCEDURE: X-RAY CHEST ONE VIEW, PORTABLE ([id number]) INDICATIONS: SHORTNESS OF BREATH IMPRESSION: Development of a small to moderate right-sided pleural effusion, with presumed overlying atelectasis. Trace left-sided pleural effusion. Dictated by: Hector Alexander M.D. on 05/16/2017 at 12:12 Approved by: Hector Alexander M.D. on 05/16/2017 at 12:14 ----- PROCEDURE: CT CHEST WITH CONTRAST ([id number]) INDICATIONS: suspicion for mass IMPRESSION: 1. Pleural fluid in the right chest shows enhancement of the pleura consistent with exudative fluid. There is suggestion of some nodularity but no definite nodularity in this patient with calcified pleural plaques. 2. Lesion against the left hemidiaphragm is a soft tissue plaque overriding some calcified pleural plaques. No associated effusion. No CT to compare. Differential As therefore malignancy from lung primary or possible mesothelioma versus benign soft tissue plaquing. 3. No malignant changes are seen in the mediastinum or upper abdomen or bones. 4. Probable bilateral renal atrophy. Renal function needs to be evaluated following the CT. Dictated by: Armen Winslow M.D. on 05/16/2017 at 18:47 Approved by: Armen Winslow M.D. on 05/16/2017 at 18:59 Other Diagnostics Echocardiogram Report Interpretation Summary 1) Normal left ventricular thickness, size, wall motion, and systolic function (EF 55-60%). 2) Normal right ventricular size and function. 3) No significant valvular abnormalities. 4) Compared to the Echo done 08/21/2016, LVEF has improved from 45-50% to 55- 60% on today's study. Reading Physician:05:42 PM Brief History This is a 62-year-old male with past medical history of CAD status post stent last [place] time, known left left pleural effusion of unknown etiology, and NSTEMI last , secondary hyperparathyroidism, ESRD secondary to hypertension currently on peroneal dialysis is presenting to the ER due to dyspnea that has been ongoing for 3-5 days and has been getting worse. At baseline patient can walk a quarter mile but now he is short of breath even walking down the chan. He thought that he had similar symptoms last July prior to his NStemi. When he came to the hospital in the ER RR 40s, his EKG showed right bundle branch block and right ventricular hypertrophy, X chest x- rays showed a trace left-sided effusion and atelectasis and but also small moderate sized right-sided effusions. blood cultures were ordered. patient underwent thoracentesis by interventional radiology which provided him in a lot of relief. ABG showed concern for acidosis at 7.27. Patient states that he is not a smoker and has never been, though he does consume marijuana daily in the evenings. His helps him at the [employer]. He does not have any other complaints that other than dry mouth, he has numbness and tingling in the peripherals, a carpal tunnel in the right hand increased generalized weakness in the recent past and he is hard of hearing (not new ). States that he has been coughing prior to coming to ER but it has resolved. He denies wheezing, his chest tightness that was reported in the ER is has also resolved. He was noted to be afebrile in the ER. He took his morning medications this morning and he was able to verify his medications upon arrival to floor. In his room, His vitals were blood pressure 172/99 temperature 99.6 pulse is 89 and he is saturating on room air fully. He states that his blood pressure is usually well under control at home with systolic 120s , diastolic 60s. An echo performed in 2015 shows 45-50% EF distal anterior hypokinesis Repeat echo was performed in the ER and showed improved left ventricular function ("Compared to the Echo done 08/21/2016, LVEF has improved from 45-50% to 55-60% on today's study.") Troponin was elevated upon admission at 0.135. Her BNP was added on today had labs showed 2043 Hospital Course Assessment # bilateral pleural effusions, present on admission s/p L sided Thoracentesis in ED -- Etiologies include renal disease, possible lung malignancy -- Patient was already tapped in the ER, follow the cultures from pleural fluid : NGTD, Proten fluid/serum ratio < 5 transudative based on lites criteria) , but CT Chest was read as exudative. -- LDH Serum was added on to 05/16 lab specimen, result is pending at this time -- Pleural fluid is cloudy, 0 PMN's, 475 whilte cells -- Added Cytology to specimen this am, we request that the PCP follows up on this study. -- Discussed with the patient that in the case of inadequate specimen, he will have to come back as outpatient for diagnostic thoracentesis. Patient verbalizes understanding -- Discussed case with Dr. Abel, patient can safely follow up with his principal automation engineer Dr. Mejía Assessment #Dyspnea, present on admission resolved -- Appears to be secondary to left-sided pleural effusion as thoracentesis provided immediate relief -- Troponins stayed relatively flat (0.133 -> 0.135-> 0.13-> 0.12-> 0.116). Echocardiogram already performed in the ER showed improved left ventricular function, discussed case with Dr. Mota on 05/16, recommends adding CK and CK- MB to troponins. No need for stress test in the a.m. based on current reedings and presentation (especially after the fact that he is asymptomatic following the thoracentesis). The patient in his time and recommendations Morphine 1 mg every 4 hours when necessary for dyspnea -- Reviewed case again with Dr. Mccauley on 05/17, who agrees with the above assessment, chest tightness at initial presentation unlikely due to cardiac reasons, echo showed no wall motion defects, no pericardial effusions. Stress test in November 2016 was normal. He feels pleural effusions could be due to renal disease. Appreciate his time and recommendations --Echocardiogram already performed in the ER showed improved left ventricular function, Assessment # end-stage renal dialysis center toenail dialysis chronic -- Dr. Abel is contacted from the ER, he arranged for dialysis on 05/16 evening -- Contacted him again on 05/17 PM, states patient can safely follow up with his own principal automation engineer Assessment #3 CAD status post stents chronic presumed stable Continue home medications atorvastatin, is aspirin, Plavix, lisinopril, metoprolol Assessment #4 hypertension chronic stable Continue home medications Assessment #5 GERD chronic stable Continue medications Assessment #6 insomnia chronic presumed stable Continue medications Assessment #7 secondary hyperparathyroidism, chronic presumed stable -- Continue vitamin supplementation CODE STATUS: Full code ADM: PCP: Dr. Escalante DVT prophylaxis with heparin subcutaneous High risk medication: Morphine IV Patient is admitted under observation status with expected length of stay less than 2 midnights due to severity of presenting symptoms, risk of adverse event, and complexity of treatment plan. Exam Vital Signs (Last) Date Time Temp Pulse Resp B/P Pulse Ox O2 Delivery O2 Flow Rate FiO2 05/17/17 16:20 36.9 67 19 155/67 96 Room Air 05/16/17 16:39 1 Exam General: NAD, sitting in couch talking to HEENT: nose appears less cyanotic today Heart: RRR, no s3/s4 sounds Lungs: fine lower lobe crackles, very faint, much improved from yesterday Abdomen: Soft, nontender Extremities: Negative for edema Neurological: No focal deficits, alert and oriented by 3 Psychiatric: Negative for anxiety Test 05/16/17 12:13 05/16/17 12:14 05/16/17 15:20 05/16/17 17:50 White Blood Count 6.4th/mm3 (3.8-10.1) Red Blood Count 3.75mil/mm3 (4.40-5.80) Hemoglobin 11.3g/dL (13.8-17.2) Hematocrit 35.3% (41.0-50.0) Mean Corpuscular Volume 94.1fL (81-100) Mean Corpuscular Hemoglobin 30.1pg (27.0-35.0) Mean Corpuscular Hemoglobin Concent 32.0% (32.0-37.0) Red Cell Distribution Width 15.9% (12.3-15.4) Platelet Count 325bil/L (150-400) Neutrophils (%) (Auto) 62.9% (40-74) Lymphocytes (%) (Auto) 19.2% (14-46) Monocytes (%) (Auto) 15.2% (4-12) Eosinophils (%) (Auto) 1.9% (0-5) Basophils (%) (Auto) 0.2% (0-3) Lactic Acid Level 1.4mmol/L (0.4-2.0) Phosphorus Level 2.3mg/dL (2.5-4.9) Total Bilirubin 0.3mg/dL (0.0-1.2) Aspartate Amino Transf (AST/SGOT) 22U/L (0-50) Alanine Aminotransferase (ALT/SGPT) 15U/L (0-44) Alkaline Phosphatase 78U/L (25-160) Pro-B-Type Natriuretic Peptide 2044pg/mL (0-210) Total Protein 6.9g/dL (6.4-8.4) Albumin 3.4g/dL (3.4-5.0) Prothrombin Time 10.6sec (8.1-12.5) Prothromb Time International Ratio 0.99ratio Activated Partial Thromboplast Time 26.4sec (22.8-33.0) Body Fluid Source Pleural fluid Body Fluid Color Red (Clear) Body Fluid Appearance Cloudy Body Fluid pH 7.4 (Not Estab.) Body Fluid WBC 475/mm3 Body Fluid RBC 77681/mm3 Body Fluid Polynuclear WBCs 0% Body Fluid Lymphocytes 73% Body Fluid Monocytes 4% Body Fluid Eosinophils 22% Body Fluid Basophils 1% Body Fluid Lactate Dehydrogenase 322U/L Pleural Fluid Total Protein 3.1g/dL Pleural Fluid Glucose 78mg/dL Magnesium Level 1.7mg/dL (1.6-2.6) Test 05/16/17 20:14 05/17/17 06:11 05/17/17 12:00 Urine Color Straw (YELLOW) Urine Appearance Clear (CLEAR,HAZY) Urine pH 6.5 (5.0-8.0) Urine Specific Dawn <1.005 (1.003-1.035) Urine Protein 30mg/dL (NEG,TRACE) Urine Glucose (UA) 250mg/dL (NEGATIVE) Urine Ketones Negativemg/dL (NEGATIVE) Urine Occult Blood Moderate (NEGATIVE) Urine Nitrite Negative (NEGATIVE) Urine Bilirubin Negative (NEGATIVE) Urine Urobilinogen Normalmg/dL (NORMAL) Urine Leukocyte Esterase Negative (NEGATIVE) Urine RBC 0-2/hpf (0-2) Urine WBC 0-5/hpf (0-5) Urine Epithelial Cells Occasional/hpf (NONE-MOD) Urine Crystals None seen (NONE SEEN) Urine Bacteria None/hpf (NONE-FEW) Urine Hyaline Casts None/lpf (NONE) Urine Granular Casts None seen (NONE SEEN) Urine Waxy Casts None seen (NONE SEEN) Urine Red Blood Cell Casts None seen (NONE SEEN) Urine White Blood Cell Casts None seen (NONE SEEN) Urine Mucus None seen (None Seen) Urine Trichomonas None seen (NONE SEEN) Urine Yeast None (NONE SEEN) Urinalysis Comment None Urine Culture Reflexed Not indicated Sodium Level 138mEq/L (134-144) Potassium Level 4.8mEq/L (3.5-5.2) Chloride Level 97mEq/L (97-108) Carbon Dioxide Level 19mmol/L (18-29) Blood Urea Nitrogen 49mg/dL (8-27) Creatinine 11.82mg/dL (0.76-1.27) Estimat Glomerular Filtration Rate 5mL/min (>59) Glucose Level 97mg/dL (60-99) Calcium Level 8.5mg/dL (8.5-10.1) Total Creatine Kinase 223U/L (21-232) Creatine Kinase MB 4.8ng/mL (0.0-10.4) Creatine Kinase MB % % (0.0-5.0) Troponin T 0.116ug/L (0.0-0.011) Discharge Medications Discharge Medications Aspirin (Aspirin) 81 Mg Tablet 81 MG PO DAILY (Reported) Atorvastatin (Lipitor) 40 Mg Tablet 40 MG PO HS (Reported) Calcium Carbonate (Calcium Carbonate) 200 Mg Tab.chew 4,000 MG PO [facility] Prescribed by: MONET FRANCIS MD Cholecalciferol (Vitamin D3) (Vitamin D3) 2,000 Unit Capsule 2,000 UNIT PO DAILY (Reported) Gabapentin (Gabapentin) 300 Mg Capsule 300 MG PO TID (Reported) Lisinopril (Lisinopril) 5 Mg Tablet 5 MG PO DAILY (Reported) Metoprolol Succinate ER (Metoprolol Succinate ER) 100 Mg Tab.er.24h 100 MG PO DAILY (Reported) Omeprazole (Omeprazole) 40 Mg Capsule.dr 40 MG PO BID (Reported) Trazodone (Trazodone) 100 Mg Tablet 100 MG PO HS (Reported) As needed Nitroglycerin SL (Nitroglycerin SL) 0.4 Mg Tab.subl 0.4 MG SL Q5MIN PRN PRN For Chest Pain (Reported) Followup Plan Follow-up plan Please follow up with your principal automation engineer in one week. Please follow upwith [facility] in one week. Discharge Diet: Heart Healthy, Renal Diet Discharge Activity: No restrictions Time spent Greater than 30 minutes was spent in preparation of discharge with greater than 50% of that time dedicated to patient counseling and coordination of care. Saritha Walters DO May 17, 2017 16:40
--- NOTE | 2017-05-17 16:48 | PCM.PNMED ---
Subjective Date of Service May 17, 2017 Exam Vital Signs Vital Sign - Last Date Time Temp Pulse Resp B/P Pulse Ox O2 Delivery O2 Flow Rate FiO2 05/17/17 06:19 37.0 69 20 128/73 95 Room Air 05/16/17 16:39 1 Intake and Output 05/16/17 05/16/17 05/17/17 Cumulative From/Thru 15:00 23:00 07:00 05/16/17 11:27 - 05/16/17 18:13 Output Total 380.00 ml 380.00 ml Balance -380.00 ml -380.00 ml Ultrafiltrate 380.00 ml 380.00 ml Lab and Diagnostics Result Diagram: 05/16/17 1213 05/16/17 1213 X-Rays, CTs and MRIs PROCEDURE: X-RAY CHEST ONE VIEW, PORTABLE ([id number]) INDICATIONS: SHORTNESS OF BREATH TECHNIQUE: One view of the chest was acquired. COMPARISON: [facility], CR, XR CHEST 2VW, 07/07/2016, 10:46. [facility], CR, XR CHEST 2VW, 07/23/2016, 16:06. [facility], CR, XR CHEST 2VW, 08/20/2016, 12:16. FINDINGS: Surgical changes and devices: Postoperative clips are seen involving the central lower neck. Lungs and pleura: There is a small moderately sized right-sided pleural effusion seen, which has increased in size compared to the prior. Likely overlying atelectasis can be seen at the right lung base. A trace left-sided pleural effusion is seen, which is decreased in size compared to the prior. No pneumothorax is seen. Mediastinum: Mediastinal contours appear normal. Heart size is normal. Bones and chest wall: Age-appropriate bony degenerative changes are seen. Mild dextroconvex scoliotic curvature is seen. No suspicious bony lesions. Overlying soft tissues appear unremarkable. IMPRESSION: Development of a small to moderate right-sided pleural effusion, with presumed overlying atelectasis. Trace left-sided pleural effusion. Dictated by: Hector Alexander M.D. on 05/16/2017 at 12:12 Approved by: Hector Alexander M.D. on 05/16/2017 at 12:14 Assessment & Plan Assessment #1 acute congestive heart failure due to volume overload HFPEF, present on admission acute dyspnea secondary to increased pleural effusions Patient was already tapped in the ER, follow the cultures from pleural fluid We will rule out other cardiac etiologies with troponins Echocardiogram already performed in the ER showed improved left ventricular function, discussed case with Dr. Mota, recommends adding CK and CK-MB to troponins. No need for stress test in the a.m. based on current reedings and presentation (especially after the fact that he is asymptomatic following the thoracentesis). The patient in his time and recommendations Morphine 1 mg every 4 hours when necessary for dyspnea Chest CT is ordered with contrast after informing nephrology to look for malignancy, rule out exudative effusions. Assessment #2 end-stage renal dialysis center toenail dialysis chronic -- Dr. Abel is contacted from the ER he plans to do a dialysis tonight -- Ultimately interesting the fluids, shift . His symptoms of volume overload and congestive heart failure Assessment #3 CAD status post stents chronic presumed stable Continue home medications atorvastatin, is aspirin, Plavix, lisinopril, metoprolol Assessment #4 hypertension chronic stable Continue home medications Assessment #5 GERD chronic stable Continue medications Assessment #6 insomnia chronic presumed stable Continue medications Assessment #7 secondary hyperparathyroidism, chronic presumed stable -- Continue vitamin supplementation CODE STATUS: Full code ADM: PCP: No PCP DVT prophylaxis with heparin subcutaneous High risk medication: Morphine IV Patient is admitted under observation status with expected length of stay less than 2 midnights due to severity of presenting symptoms, risk of adverse event, and complexity of treatment plan. Saritha Walters DO May 17, 2017 07:58
--- NOTE | 2017-05-17 17:14 | NUR ---
DISCHARGE Patient discharged home at 1712, ambulated off floor accompanied by RN and . Vitals stable, denies pain and in no apparent distress. All instructions for diet, activity, medications and follow-up reviewed with patient and who report understanding. IV discontinued intact, all belongings returned.
--- NOTE | 2017-05-20 15:13 | PATH ---
SURGICAL PATHOLOGY Attending Physician:Ida Ventura CASE STATUS: Signed Out PATIENT NAME: YUE RAMIRES PID: [id number] : 1955 DATE COLLECTED:05/16/2017 00:00 SPECIMEN: Pleural Fluid CLINICAL HISTORY: Pleural Fluid ICD-10 code not given FINAL DIAGNOSIS: See diagnosis. NOTE: PLEURAL FLUID, CYTOLOGY: NEGATIVE FOR MALIGNANT CELLS. ICD10 J90 GROSS DESCRIPTION: Received fresh on 05/17/2017 is approximately 60 cc of cloudy pink fluid. Prepared are one cell block and one Cytospin slide. Vo ICD-9 CODES: CPT CODES: 1: 82137, 16289, 40692 Electronically Signed Out Diamond Hanna MD [facility] [address], [place] [address] Technical component performed at [facility], [facility] [address], [place], [address]
== END 2017-05-17 17:13 | disposition home or self-care (01) ==
LOC: SED 11:23 → EDUNIT# 11:23 → INTOOBSV 14:51 → MPC 14:51
PROVIDERS: ADMIT Family Medicine; ATTEND Family Medicine
DX: J90 Pleural effusion, not elsewhere classified (principal); R79.89 Other specified abnormal findings of blood chemistry; I50.9 Heart failure, unspecified; E87.70 Fluid overload, unspecified; I25.10 Atherosclerotic heart disease of native coronary artery without angina pectoris; I12.0 Hypertensive chronic kidney disease with stage 5 chronic kidney disease or end stage renal disease; K21.9 Gastro-esophageal reflux disease without esophagitis; E21.3 Hyperparathyroidism, unspecified; N18.6 End stage renal disease; R06.00 Dyspnea, unspecified; G25.81 Restless legs syndrome; E83.39 Other disorders of phosphorus metabolism; Z99.2 Dependence on renal dialysis; Z86.73 Personal history of transient ischemic attack (TIA), and cerebral infarction without residual deficits; Z95.5 Presence of coronary angioplasty implant and graft; Z88.8 Allergy status to other drugs, medicaments and biological substances; Z79.82 Long term (current) use of aspirin; G62.9 Polyneuropathy, unspecified
CPT/HCPCS: 32555; 36415; 71010; 71260; 80048; 80053; 81000; 82550; 82553; 82803; 82945; 83605; 83615; 83735; 83880; 83986; 84100; 84484; 85025; 85610; 85730; 87040; 87070; 87075; 87205; 88112; 88305; 89051; 93005; 96372; 99285; C8924; G0378; J1644; Q9967